=== PATIENT | female | born 1995 ===

== ENCOUNTER 2021-07-22 21:32 | Emergency (ER) | payer OTHER, SELFPAY ==
[2021-07-22 21:37] VITALS: BP 127/68; PULSE 87; RESP 20; TEMP 37.7; O2SAT 100
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
[2021-07-22 22:21] VITALS: BP 127/68; PULSE 87; RESP 20; TEMP 37.7; O2SAT 100
== END 2021-07-22 22:21 | disposition home or self-care (01) ==
PROVIDERS: Emergency Provider Physician Assistant
DX: H93.12 Tinnitus, left ear (principal); V47.5XXA Car driver injured in collision with fixed or stationary object in traffic accident, initial encounter; W22.11XA Striking against or struck by driver side automobile airbag, initial encounter
CPT/HCPCS: 99282; 99283